=== PATIENT | female | born 1945 | race Caucasian/White ===

== ENCOUNTER 2021-01-27 09:29 | Emergency (ER) | payer MEDICARE, MEDICAID, SELFPAY ==
--- NOTE | ~2021-01-27 | XR_ITS ---
EXAMINATION: XR chest 2V DATE: 01/27/2021 09:55 INDICATION: COPD and intermittent wheezing TECHNIQUE: PA and lateral views of the chest are obtained. COMPARISON: None available FINDINGS: There are patchy airspace opacities of the lower lobes, right greater than left. There is n o pleural effusion or pneumothorax. The cardiomediastinal silhouette is normal. There is moderate tho racic spondylosis. IMPRESSION: 1. Patchy opacities of the lower lobes which may be infectious or inflammatory. Recommend followup ra diographs in 10-14 days after appropriate therapy to evaluate for improvement/resolution. Reviewed, dictated and finalized at location B. IMPRESSION: 1. Patchy opacities of the lower lobes which may be infectious or inflammatory. Recommend followup radiographs in 10-14 days after appropriate therapy to eval uate for improvement/resolution.
--- NOTE | 2021-01-27 09:33 | ED.URI ---
HPI - URI/Sore Throat General Chief Complaint: Upper Respiratory Infection Stated Complaint: wheezing with COPD Time Seen by Provider: 01/27/21 09:33 Source: patient and RN notes reviewed History of Present Illness HPI Narrative: Patient is a 75-year-old female who presents the urgent care with complaints of wheezing for the last 2 days. Patient states that she has been using her nebulizer every 6 hours with improvements on wheezing. Patient denies of any fevers, nausea, vomiting, headache. States that she has also recently started on Symbicort. Currently denies of any chest pain or difficulty breathing. No other acute complaints. No acute distress noted. Patient aware of the plan of care. Some parts of this dictation were generated by voice recognition software and may contain typographical and/or grammatical inaccuracies. Related Data Allergies Allergy/AdvReac Type Severity Reaction Status Date / Time Anesthetics - Lynn Type- Allergy Severe swellling Verified 01/27/21 09:54 Parabens of muscles around heart Review of Systems Review of Systems: Narrative: CONSTITUTIONAL: Denies fever, chills, or sweats. EYES: Denies visual changes, redness, or discharge. ENT: Denies rhinorrhea, congestion, sore throat, or otalgia. CARDIOVASCULAR: Denies chest pain, palpitations, or edema. RESPIRATORY: Reports of nonproductive cough with intermittent dyspnea and wheezing GASTROINTESTINAL: Denies abdominal pain, nausea, vomiting, or diarrhea. GENITOURINARY: Denies dysuria or hematuria. SKIN: Denies rash or itching. MUSCULOSKELETAL: Denies back pain, joint pain, or myalgia. NEUROLOGIC: Denies headache, numbness, or weakness. All other systems reviewed are negative, except as documented in HPI. PMFSH Comments At the time of my signature, I reviewed and agree with the nursing past medical, surgical, social, and family history. There is no relevant family history pertinent to the patient complaint. Exam Narrative: Exam Narrative: GENERAL: This is a well-nourished, well-developed patient, in no apparent distress. HEAD: normocephalic, atraumatic. EYES: PERRL. Sclera clear/white. Vision is grossly intact. EARS: External ears normal, auditory canals clear and without drainage, TMs normal without perforation. Hearing grossly intact. NOSE: External nose normal with no obvious nasal discharge, nares without redness, no rhinorrhea. THROAT: Mucous membranes moist, posterior pharynx clear. Mild postnasal drainage NECK: Neck supple, non-tender without lymphadenopathy CARDIOVASCULAR: Regular rate and rhythm without murmurs, gallops, or rubs. RESPIRATORY: Diminished throughout without any notable wheezing or rhonchi SKIN: warm, intact with no suspicious lesions or rash, good texture and turgor. NEURO: awake, alert, and oriented to person, place and time. There were no obvious focal neurologic abnormalities. EXTREMITIES: No clubbing, cyanosis, or edema. Course Vital Signs Vital signs: Vital Signs Temperature 97.4 F L 01/27/21 09:36 Pulse Rate 110 H 01/27/21 09:36 Respiratory Rate 20 01/27/21 09:36 Blood Pressure 103/82 01/27/21 09:36 Pulse Oximetry 98 01/27/21 09:36 Temperature 97.4 F L 01/27/21 09:36 Pulse Rate 110 H 01/27/21 09:36 Respiratory Rate 20 01/27/21 09:36 Blood Pressure 103/82 01/27/21 09:36 Pulse Oximetry 98 01/27/21 09:36 Reviewed MDM - URI/Sore Throat MDM Narrative Medical decision making narrative: Reviewed x-ray results with the patient. She is aware that x-ray shows opacities of the lower lobes which could be pneumonia or inflammatory process from your COPD. Therefore it is recommended that you follow-up with a repeat chest x-ray in 10 to 14 days which can be ordered by your primary care doctor. Complete the oral antibiotic regimen as prescribed. Complete the steroid regimen as prescribed. Be sure to eat and drink with the medications. Continue to use your inhaler and nebulizers as ne
[2021-01-27 09:36] VITALS: BP 103/82; PULSE 110; RESP 20; TEMP 36.3; O2SAT 98
== END 2021-01-27 10:15 | disposition home or self-care (01) ==
PROVIDERS: Emergency Provider Nurse Practitioner Family; PCP Internal Medicine
DX: J44.9 Chronic obstructive pulmonary disease, unspecified (principal); R91.8 Other nonspecific abnormal finding of lung field; E78.00 Pure hypercholesterolemia, unspecified; H26.9 Unspecified cataract
CPT/HCPCS: 71046; 99203; G0463